=== PATIENT | female | born 1950 | race Caucasian/White ===

== ENCOUNTER 2023-07-07 16:22 | Emergency (ER) | payer BC, SELFPAY ==
[2023-07-07 16:41] VITALS: BP 95/62; PULSE 66; RESP 20; TEMP 36.7; O2SAT 98; BMI 18.6
[2023-07-07 17:37] LABS: PCR FLU A Negative PCR FLU A (Negative); PCR FLU B Negative PCR FLU B (Negative); PCR RSV Negative PCR RSV (Negative)
[2023-07-07 18:02] LABS: SARS PCR* Negative SARS-CoV-2 (Negative)
--- NOTE | 2023-07-07 18:22 | ED_ITS ---
HPI - General Adult General Chief complaint: Unspecified Complaint, Adult Stated complaint: Chest tightness, cough, congestion Time Seen by Provider: 07/07/23 17:27 History of Present Illness HPI narrative: This 72-year-old female states that she called clinic today to make an appointment but none was available so she was instructed to come to the emergency department. She states that she did not think that she needed to come here but followed recommendations that were given to her. She states that she has some upper respiratory symptoms including cough and nasal congestion that started a couple days ago. He does not report any shortness of breath. She arrives here with normal vital signs. Related Data Home Medications Medication Instructions Recorded Confirmed No Known Home Medications 07/07/23 07/07/23 Allergies Allergy/AdvReac Type Severity Reaction Status Date / Time erythromycin base Allergy Mild Abdominal Verified 07/07/23 16:45 Pain Review of Systems Status of ROS: Reports: 10 or more systems reviewed and unremarkable except as noted in History and below Narrative: Constitutional: No fevers, no weight gain or loss. Eyes: No discharge. No vision changes. HENT: No congestion, no sore throat, no ear pain. Cardiovascular: No chest pain, no palpitations. Respiratory: No shortness of breath, no wheezes. Occasional cough. Gastrointestinal: No abdominal pain, no vomiting, no diarrhea. Genitourinary: No dysuria, no hematuria. Musculoskeletal: Normal range of motion. Skin: No rashes, no pruritis. Neurological: No dizziness, weakness, sensory change, speech change. Endo/Heme/Allergies: No bruising or bleeding. No polydipsia. Pysch: no suicidality, no anxiety, no insomnia. All other systems reviewed and are negative. PFSH PFSH Social History Smoking Status: Never smoker How often do you have a drink containing alcohol: never How often do you have six or more drinks on one occasion: Never AUDIT-C Alcohol total score: 0 Non-prescribed substance use: denies use service: Yes Exam Narrative: Exam Narrative: Constitutional: Well-developed, well-nourished, no acute distress. HEENT: Normocephalic, atraumatic. Neck: Normal range of motion. Nontender. Supple. Heart: Regular. No murmurs. Normal rate. Intact distal pulses. Lungs: Clear to auscultation. No chest discomfort. No wheezes, rhonchi, or rales. Abdomen: Normal bowel sounds. Nontender. No rebound tenderness. Genitalia: Deferred. Back: No midline tenderness. Normal range of motion. Extremities: Normal range of motion. No injury. Skin: Intact. No rash. Warm. No erythema or pallor. Neurologic: No altered sensation. No weakness. Alert and oriented. Psychiatric: No suicidality. No anxiety or depression. No insomnia. Nursing notes and vitals signs are reviewed. Const: Vital Signs, click to edit/add: Vital Signs - 24 hr 07/07/23 16:41 Temperature 98.1 F Pulse Rate [Pulse Oximeter] 66 Respiratory Rate 20 Blood Pressure [Ri ght Upper Arm] 95/62 Pulse Oximetry 98 Oxygen Delivery Me thod Room Air Course Vital Signs Vital signs: Initial Vital Signs Temperature 98.1 F 07/07/23 16:41 Temperature Source Temporal Artery Scan 07/07/23 16:41 Pulse Rate 66 07/07/23 16:41 Pulse Rhythm Regular 07/07/23 16:41 Respiratory Rate 20 07/07/23 16:41 Blood Pressure 95/62 07/07/23 16:41 Blood Pressure Mean 73 07/07/23 16:41 Blood Pressure Position Sitting 07/07/23 16:41 Pulse Oximetry 98 07/07/23 16:41 Oxygen Delivery Method Room Air 07/07/23 16:41 Vital Signs Temperature 98.1 F 07/07/23 16:41 Pulse Rate 66 07/07/23 16:41 Respiratory Rate 20 07/07/23 16:41 Blood Pressure 95/62 07/07/23 16:41 Pulse Oximetry 98 07/07/23 16:41 Oxygen Delivery Method Room Air 07/07/23 16:41 Temperature 98.1 F 07/07/23 16:41 Pulse Rate 66 07/07/23 16:41 Respiratory Rate 20 07/07/23 16:41 Blood Pressure 95/62 07/07/23 16:41 Pulse Oximetry 98 07/07/23 16:41 Oxygen Delivery Method Room Air 07/07/23 16:41 Medical Decision Making MDM Narrative Medical decision making narrative: This patient has upper respiratory symptoms. Nasal pharyngeal swab returns negative for COVID, influenza, and RSV. Her exam is reassuring. She most likely has some kind of viral upper respiratory infection. The patient did receive a 1 time oral dose of dexamethasone 10 mg. She is encouraged use [id number] medicines as needed and directed. Lab Data Labs: Lab Results 07/07/23 Range/Units 16:45 SARS-CoV-2 (PCR) Negative SARS-CoV-2 (Negative) Influenza Type A (PCR) Negative PCR FLU A (Negative) Influenza Type B (PCR) Negative PCR FLU B (Negative) RSV (PCR) Negative PCR RSV (Negative) Discharge Plan Discharge Clinical Impression: Acute upper respiratory infection Patient Disposition: Home, Self-Care Condition: Stable Additional Instructions: Use [id number] medicines as needed and directed. Follow up with MD return if worsening. Prescriptions: No Action No Known Home Medications Stand Alone Forms: [employer] Info Instructions
--- NOTE | 2023-07-07 18:36 | ED.NURSE ---
pt left without being seen for last set of vitals.
== END 2023-07-07 18:35 | disposition home or self-care (01) ==
LOC: ED 18:38
PROVIDERS: Emergency Provider Emergency Medicine Emergency Medical Services; PCP Family Medicine
DX: J06.9 Acute upper respiratory infection, unspecified (principal)
CPT/HCPCS: 87631; 99283; 99284